=== PATIENT | male | born 1975 | race Caucasian/White ===

== ENCOUNTER 2017-05-08 17:56 | Emergency (ER) | payer MEDICARE, OTHER, MEDICAID ==
[~2017-05-08] VITALS: Ht 162.6 cm; Wt 59.0 kg
[2017-05-08 19:21] VITALS: BP 133/88
== END 2017-05-08 19:25 | disposition home or self-care (01) ==
LOC: M ED 17:56
DX: T85.598A Other mechanical complication of other gastrointestinal prosthetic devices, implants and grafts, initial encounter (principal); X58.XXXA Exposure to other specified factors, initial encounter; Y92.9 Unspecified place or not applicable; Y93.9 Activity, unspecified; Y99.8 Other external cause status; Q87.0 Congenital malformation syndromes predominantly affecting facial appearance; Z93.1 Gastrostomy status